=== PATIENT | male | born 1980 | race African-American/Black ===

== ENCOUNTER 2019-05-05 00:19 | Emergency (ER) | payer MEDICARE, MEDICAID ==
[~2019-05-05] VITALS: Ht 185.4 cm; Wt 124.1 kg
[~2019-05-05 00:19] MED LIST: ATOR1TAB19 PO; BUSP5TA PO; DEPA500T2 PO; DRIS50003 PO; GABA600T4 PO; GABA800T4 PO; KLON1TAB PO; KLON2TAB PO; METH20TA PO; OLAN15TA PO; OLAN20TA14 PO; PANT40TA3 PO; PERC5TAB12 PO
[2019-05-05] MEDS ORDERED: CLON0.5T17 PO (00:37)
[2019-05-05] MEDS ORDERED: SUBO8MIS SL (00:37)
[2019-05-05 01:19] LABS: HEMATOCRIT 47.2 % (42.0-52.0); HEMOGLOBIN 15.7 g/dl (13.5-17.5); MEAN CORPUSCULAR HEMOGLOBIN 30.6 pg (27.0-33.0); MEAN CORPUSCULAR HGB CONC 33.3 g/dl (32.0-36.5); PLATELET COUNT, AUTOMATED 285 10^3/uL (150-450); RED BLOOD COUNT 5.13 10^6/uL (4.30-6.10); WHITE BLOOD COUNT 12.6 10^3/uL (4.0-10.0)
[2019-05-05 01:41] LABS: ALBUMIN 3.9 GM/DL (3.2-5.2); ALT/SGPT 60 U/L (12-78); BILIRUBIN,TOTAL 0.8 MG/DL (0.2-1.0); BLOOD UREA NITROGEN 21 MG/DL (7-18); CALCIUM LEVEL 9.1 MG/DL (8.5-10.1); CARBON DIOXIDE LEVEL 26 MEQ/L (21-32); CHLORIDE LEVEL 102 MEQ/L (98-107); CREATININE FOR GFR 1.61 MG/DL (0.70-1.30); GLOMERULAR FILTRATION RATE > 60.0 (>60); GLUCOSE, FASTING 107 MG/DL (70-100); POTASSIUM SERUM 4.2 MEQ/L (3.5-5.1); SODIUM LEVEL 137 MEQ/L (136-145); TOTAL PROTEIN 8.9 GM/DL (6.4-8.2)
[2019-05-05] MEDS ORDERED: VANCOMYCIN HCL 1,000 MG, VIAL MATE ADAPTER 1 EACH in D5W 250 ML IV ONE (04:15)
[2019-05-05] MEDS ORDERED: cefTRIAXone SOD 1 GM in D5W MINI-BAG PLUS 50 ML IV ONE (04:15)
[2019-05-05] MEDS ORDERED: KETOROLAC 30 MG/ML VIAL (J1885) IV ONE (04:15)
[2019-05-05 04:39] LABS: BASO % 0.3 % (0.0-1.0); EOS # 0.1 10^3/uL (0.0-0.50); EOS % 0.4 % (0.0-3.0); LYMPH # 2.4 10^3/uL (1.5-4.5); MONO # 1.8 10^3/uL (0.0-0.8); MONO % 13.3 % (0.0-5.0); NEUTROPHILS # 8.9 10^3/uL (1.8-7.7); NEUTROPHILS % 67.8 % (36.0-66.0)
[2019-05-05] MEDS ORDERED: cefTRIAXone SOD 1 GM in D5W MINI-BAG PLUS 50 ML IV SCH (04:45)
[2019-05-05] MEDS ORDERED: VANCOMYCIN HCL 1,000 MG, VIAL MATE ADAPTER 1 EACH in D5W 250 ML IV SCH (04:45)
--- NOTE | 2019-05-05 05:13 | PHACANCOPD ---
PHARMACY VANCOMYCIN DOSING Pt Demographics Demographics Patient Age:38 , Weight:223.000 , Gender: male Adjusted Body Weight Date: 05/05/19, Adjusted Body Weight: [137] Kg Vancomycin Vancomycin indication: INFECTED LEFT HIP PROSTHESIS Vancomycin Target Ranges: 15-20 mcg/ml Vancomycin Load Y/N: Yes Load Dose Date Time Vancomycin Load Dose: 2 GM Date: 05/05 Time: 4-0500 Vancomycin Dose Date: 05/05/19. Current Vancomycin Dose: [1 GM q8h] Intermittent Dosing?: No Labs Labs Laboratory Tests 05/05/19 01:03 Red Blood Count 5.13, Mean Corpuscular Volume 92.0, Mean Corpuscular Hemoglobin 30.6, Mean Corpuscular Hemoglobin Concent 33.3, Red Cell Distribution Width 13.0, Neutrophils (%) (Auto) 67.8 H, Lymphocytes (%) (Auto) 18.0 L, Monocytes (%) (Auto) 13.3 H, Eosinophils (%) (Auto) 0.4, Basophils (%) (Auto) 0.3, Neutrophils # (Auto) 8.9 H, Lymphocytes # (Auto) 2.4, Monocytes # (Auto) 1.8 H, Eosinophils # (Auto) 0.1, Basophils # (Auto) 0.0, Calcium Level 9.1, Aspartate Amino Transf (AST/SGOT) 51 H, Alanine Aminotransferase (ALT/SGPT) 60, Alkaline Phosphatase 128 H, Total Bilirubin 0.8, Total Protein 8.9 H, Albumin 3.9 Creatinine Clearance Date:05/05/19. Creatinine Clearance: [~122]. Assessment and Plan Maintaining Current Dose?: Yes Reason for dose change: No Dose Change Pharmacist Note Pharmacist Note Date: 05/05/19. Pharmacist note:[id number],scr=1.61,CRCL~122,NKDA.PATIENT has infected left hip prosthesis and is currently in the emergency department awaiting transfer to another facility.abx tx includes Ceftriaxone 1 gram [id number] and Pharmacy dosed Vanvcomycin.2 gram Vancomycin from 4-5am as loading dose,then will continue with a 1 gram Q8Hour regimen.First trough is scheduled for 05/06@0400-will continue to follow labs. [facility] May 05, 2019 05:13
[2019-05-05] MEDS: VANCOMYCIN HCL 1,000 MG, VIAL MATE ADAPTER 1 EACH in D5W 250 ML IV SCH ×3 (05:57→23:16)
--- NOTE | 2019-05-05 08:38 | REP ---
Left hip two views: There are no comparisons. There is a total hip arthroplasty and internal fixation of the left acetabulum. The There are no lytic, blastic or destructive skeletal changes. There is no fracture or dislocation. Electronically Signed by Mayo Aguilar MD 05/05/2019 08:29 A
[2019-05-05] MEDS ORDERED: ATORVASTATIN 20 MG TAB PO ONE (09:45)
[2019-05-05] MEDS ORDERED: METHYLPHENIDATE 20 MG SR TAB (RITALIN SR) PO ONE (09:45)
[2019-05-05] MEDS ORDERED: PANTOPRAZOLE 20 MG TAB PO ONE (09:45)
[2019-05-05] MEDS ORDERED: BUPRENORPHINE/NALOXONE 8-2MG SUBLINGUAL TABLET(SUBOXONE) SL ONE (13:00)
[2019-05-05] MEDS ORDERED: busPIRone 10 MG TAB PO ONE (16:00)
[2019-05-05] MEDS ORDERED: GABAPENTIN 400 MG CAP PO ONE (16:00)
[2019-05-05] MEDS ORDERED: clonazePAM 0.5 MG TAB PO ONE (16:00)
[2019-05-05] MEDS: cefTRIAXone SOD 1 GM in D5W MINI-BAG PLUS 50 ML IV SCH (18:19)
[2019-05-05] MEDS ORDERED: OLANZapine 5 MG TAB PO ONE (21:00)
[2019-05-05] MEDS ORDERED: DIVALPROEX 500MG *ER* TAB PO ONE (21:00)
[2019-05-05] MEDS: BUPRENORPHINE/NALOXONE 8-2MG SUBLINGUAL TABLET(SUBOXONE) SL SCH (21:44)
[2019-05-06] MEDS: cefTRIAXone SOD 1 GM in D5W MINI-BAG PLUS 50 ML IV SCH ×2 (04:27→15:49)
[2019-05-06] MEDS: VANCOMYCIN HCL 1,000 MG, VIAL MATE ADAPTER 1 EACH in D5W 250 ML IV SCH ×3 (05:14→14:46)
--- NOTE | 2019-05-06 05:44 | PHACANCOPD ---
PHARMACY VANCOMYCIN DOSING Pt Demographics Demographics Patient Age:38 , Weight:223.000 , Gender: male Adjusted Body Weight Date: 05/05/19, Adjusted Body Weight: [137] Kg Events Past 24 Hours Events Past 24 Hours: NO: Dialysis, Diuretic Therapy, Change in CrCl, Fever, Elevation in WBC, Pending Diagnostics, Pending Procedures, Other Vancomycin Vancomycin indication: INFECTED LEFT HIP PROSTHESIS Vancomycin Target Ranges: 15-20 mcg/ml Vancomycin Load Y/N: Yes Load Dose Date Time Vancomycin Load Dose: 2 GM Date: 05/05 Time: 4-0500 Vancomycin Dose Date: 05/06/19. Current Vancomycin Dose: [1 GM q6h] Intermittent Dosing?: No Labs Labs Item Value Date Time Vancomycin Level Trough 9.5 UG/ML L 05/06/19412 Vital Signs Label Value Date Time Patient Temperature 99.7 degrees F 05/06/19416 Temperature Source Oral 05/06/19416 Micro Microbiology 05/05/19 Blood Culture - Preliminary, Resulted No growth after 24 hours . All specim... 05/05/19 Blood Culture - Preliminary, Resulted No growth after 24 hours . All specim... Creatinine Clearance Date:05/05/19. Creatinine Clearance: [~122]. Pending Labs Trough -16 @1999 Assessment and Plan Maintaining Current Dose?: No Reason for dose change: Trough too low Pharmacist Note Pharmacist Note Date: 05/06/19. Pharmacist note:Trough of 9.5 is below target range. Dose increased to 1000mg q6h. Will continue to monitor and make adjustments as PAM Clarke ded. PHARMACY May 06, 2019 05:44
[2019-05-06] MEDS ORDERED: PANTOPRAZOLE 40MG TAB (PROTONIX) PO ONE (08:00)
[2019-05-06] MEDS ORDERED: ATORVASTATIN 20 MG TAB PO ONE (08:00)
[2019-05-06] MEDS: BUPRENORPHINE/NALOXONE 8-2MG SUBLINGUAL TABLET(SUBOXONE) SL SCH (08:23)
[2019-05-06] MEDS ORDERED: busPIRone 10 MG TAB PO ONE (09:00)
[2019-05-06] MEDS ORDERED: GABAPENTIN 400 MG CAP PO ONE (09:00)
[2019-05-06] MEDS ORDERED: busPIRone 5 MG TAB PO ONE (09:00)
[2019-05-06] MEDS ORDERED: clonazePAM 0.5 MG TAB PO ONE (09:00)
[2019-05-06] MEDS ORDERED: METHYLPHENIDATE 20 MG SR TAB (RITALIN SR) PO SCH (09:00)
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
[2019-05-06 12:51] VITALS: BP 132/76
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
== END 2019-05-06 16:30 | disposition left against medical advice (07) ==
LOC: M ED 00:19
DX: T84.52XA Infection and inflammatory reaction due to internal left hip prosthesis, initial encounter (principal); X58.XXXA Exposure to other specified factors, initial encounter; Y92.89 Other specified places as the place of occurrence of the external cause; K58.9 Irritable bowel syndrome, unspecified; E78.5 Hyperlipidemia, unspecified; F31.9 Bipolar disorder, unspecified; F41.9 Anxiety disorder, unspecified; F43.10 Post-traumatic stress disorder, unspecified; G40.909 Epilepsy, unspecified, not intractable, without status epilepticus; F19.11 Other psychoactive substance abuse, in remission; Z79.899 Other long term (current) drug therapy; Z79.891 Long term (current) use of opiate analgesic
CPT/HCPCS: 36415; 73502; 80053; 80202; 85027; 86140; 87040; 96365; 96366; 96367; 96375; 99284; J0696; J1885; J3370

== ENCOUNTER 2019-05-06 21:57 | Emergency (ER) | payer MEDICARE, MEDICAID ==
[~2019-05-06] VITALS: Ht 185.4 cm; Wt 123.6 kg
[~2019-05-06 21:57] MED LIST changes: +CLON0.5T17 PO; +SUBO8MIS SL
[2019-05-07] MEDS ORDERED: VANCOMYCIN HCL 1,000 MG, VIAL MATE ADAPTER 1 EACH in D5W 250 ML IV ONE (04:30)
[2019-05-07] MEDS ORDERED: cefTRIAXone SOD 1 GM in D5W MINI-BAG PLUS 50 ML IV ONE (04:30)
[2019-05-07 04:45] LABS: BASO # 0.1 10^3/uL (0.0-0.2); BASO % 0.7 % (0.0-1.0); EOS # 0.2 10^3/uL (0.0-0.50); EOS % 2.1 % (0.0-3.0); HEMATOCRIT 40.8 % (42.0-52.0); HEMOGLOBIN 13.4 g/dl (13.5-17.5); LYMPH # 2.5 10^3/uL (1.5-4.5); LYMPH % 28.9 % (24.0-44.0); MEAN CORPUSCULAR HEMOGLOBIN 30.2 pg (27.0-33.0); MEAN CORPUSCULAR HGB CONC 32.8 g/dl (32.0-36.5); MEAN CORPUSCULAR VOLUME 91.9 fl (80.0-96.0); MONO % 11.2 % (0.0-5.0); NEUTROPHILS # 4.9 10^3/uL (1.8-7.7); NEUTROPHILS % 56.9 % (36.0-66.0); PLATELET COUNT, AUTOMATED 313 10^3/uL (150-450); RED BLOOD COUNT 4.44 10^6/uL (4.30-6.10); WHITE BLOOD COUNT 8.6 10^3/uL (4.0-10.0)
[2019-05-07 05:06] LABS: BLOOD UREA NITROGEN 13 MG/DL (7-18); CALCIUM LEVEL 8.9 MG/DL (8.5-10.1); CARBON DIOXIDE LEVEL 32 MEQ/L (21-32); CHLORIDE LEVEL 105 MEQ/L (98-107); CREATININE FOR GFR 0.94 MG/DL (0.70-1.30); GLOMERULAR FILTRATION RATE > 60.0 (>60); GLUCOSE, FASTING 94 MG/DL (70-100); POTASSIUM SERUM 3.7 MEQ/L (3.5-5.1); SODIUM LEVEL 142 MEQ/L (136-145)
[2019-05-07 09:10] VITALS: BP 124/69
== END 2019-05-07 09:19 | disposition short-term general hospital (02) ==
LOC: M ED 21:57
DX: T84.52XA Infection and inflammatory reaction due to internal left hip prosthesis, initial encounter (principal); X58.XXXA Exposure to other specified factors, initial encounter; Y92.89 Other specified places as the place of occurrence of the external cause; F31.9 Bipolar disorder, unspecified; F19.10 Other psychoactive substance abuse, uncomplicated; Z79.899 Other long term (current) drug therapy

== ENCOUNTER 2024-04-17 21:09 | Emergency (ER) | payer MEDICARE, MEDICAID ==
[~2024-04-17] VITALS: Ht 185.4 cm; Wt 93.0 kg
[~2024-04-17 21:09] MED LIST changes: +CLON-952 PO; -KLON1TAB PO; +KLON1TAB13 PO; -KLON2TAB PO; -OLAN15TA PO; +OLAN15TA13 PO; +PANT40TA29 PO; -PANT40TA3 PO
[2024-04-17 23:58] VITALS: BP 125/71; TEMP 97.5
[2024-04-18] MEDS: IBUPROFEN 600MG TAB PO ONE (00:37)
[2024-04-18 01:02] VITALS: O2SAT 96
[2024-04-18] MEDS ORDERED: AMOX875T2 PO (01:21)
[2024-04-18] MEDS ORDERED: IBUP-1022 PO (01:21)
[2024-04-18] MEDS: AUGMENTIN 875 MG TAB PO ONE (01:25)
== END 2024-04-18 01:27 | disposition home or self-care (01) ==
LOC: M ED 21:09
DX: S02.2XXA Fracture of nasal bones, initial encounter for closed fracture (principal); W50.0XXA Accidental hit or strike by another person, initial encounter; F17.200 Nicotine dependence, unspecified, uncomplicated; G43.909 Migraine, unspecified, not intractable, without status migrainosus; F41.9 Anxiety disorder, unspecified; K58.9 Irritable bowel syndrome, unspecified; Y92.9 Unspecified place or not applicable; Y93.67 Activity, basketball; Y99.9 Unspecified external cause status; Z79.2 Long term (current) use of antibiotics; Z79.02 Long term (current) use of antithrombotics/antiplatelets; Z79.899 Other long term (current) drug therapy; Z79.1 Long term (current) use of non-steroidal anti-inflammatories (NSAID)